=== PATIENT | male | born 1955 | race African-American/Black ===

== ENCOUNTER 2017-09-25 18:59 | Emergency (ER) | payer MEDICAID ==
[~2017-09-25] VITALS: Ht 162.6 cm; Wt 69.9 kg
[2017-09-25 18:58] VITALS: BP 129/68
--- NOTE | 2017-09-25 19:05 | Emergency Room Report ---
History of Present Illness General Chief Complaint: General Complaint Source: Patient (FAM SANTIAGO) Present Illness HPI Patient is a 62-year-old homeless male who presents with hypoglycemia. The patient states he takes glipizide and has been compliant with his diabetes medications but has not eaten at all today secondary to being homeless and unable to find anything to eat. Patient was given glucagon and oral glucose by EMS with improvement to blood sugar 130 now. Patient states he has bilateral leg pain that is chronic for him otherwise he has no complaints. (FAM SANTIAGO) Allergies: Coded Allergies: No Known Allergies (Unverified , 09/25/17) Patient History Past Medical History: DM Past Surgical History: none Pertinent Family History: none Social History: Reports: smoking, alcohol use (FAM SANTIAGO) Nursing Documentation-[facility] Hx Diabetes: Yes History Of Psychiatric Problem: Yes Hx Seizures: Yes (FAM SANTIAGO) Review of Systems Constitutional: Denies: no symptoms, see HPI, chills, sweats, fever, malaise, weakness, other Eye: Denies: no symptoms, see HPI, eye pain, blurred vision, tearing, double vision, nose pain, nose congestion, acuity changes, discharge, other ENT: Denies: no symptoms, see HPI, ear pain, ear discharge, nose pain, nose congestion, throat pain, throat swelling, mouth pain, hearing loss, nasal discharge, other Respiratory: Denies: no symptoms, see HPI, cough, orthopnea, shortness of breath, stridor, wheezing, WALKER, sputum, other Cardiovascular: Denies: no symptoms, see HPI, chest pain, edema, palpitations, syncope, PND, other Gastrointestinal: Denies: no symptoms, see HPI, abdominal pain, constipation, diarrhea, nausea, vomiting, melena, hematemesis, other Musculoskeletal: Reports: see HPI Skin: Denies: no symptoms, see HPI, rash, change in color, change in hair/nails , dryness, lesions, other Psychiatric: Denies: no symptoms, see HPI, prior hx, anxiety, depressed feelings, emotional problems, SI, HI, hallucinations, other Endocrine: Denies: no symptoms, see HPI, excessive sweating, flushing, intolerance to temperature, increased thirst, increased urine, unexplained weight loss, other Allergic: Denies: no symptoms, see HPI, urticaria, hay fever, other (FAM SANTIAGO) Physical Exam Vital Signs Date Time Temp Pulse Resp B/P (MAP) Pulse Ox O2 Delivery O2 Flow Rate FiO2 09/25/17 18:39 98.9 87 20 129/68 98 Room Air 99.0 Sp02 EP Interpretation: reviewed, normal General Appearance: no apparent distress, alert, GCS 15, non-toxic Head: normocephalic, atraumatic Eyes: bilateral eye normal inspection, bilateral eye PERRL ENT: hearing grossly normal, normal pharynx, no angioedema, normal voice Neck: full range of motion, supple/symm/no masses Respiratory: chest non-tender, lungs clear, normal breath sounds, speaking full sentences Cardiovascular #1: regular rate, rhythm, no edema Cardiovascular #2: 2+ carotid (R), 2+ carotid (L), 2+ radial (R), 2+ radial (L) , 2+ dorsalis pedis (R), 2+ dorsalis pedis (L) Gastrointestinal: normal bowel sounds, non tender, soft, non-distended, no guarding, no rebound Rectal: deferred Genitourinary: normal inspection, no CVA tenderness Musculoskeletal: back normal, gait/station normal, normal range of motion, non- tender, calf tenderness Neurologic: alert, oriented x3, responsive, motor strength/tone normal, sensory intact, speech normal Psychiatric: judgement/insight normal, memory normal, mood/affect normal, no suicidal/homicidal ideation Reflexes: 3+ bicep (R), 3+ bicep (L), 3+ tricep (R), 3+ tricep (L), 3+ knee (R) , 3+ knee (L) Skin: normal color, no rash, warm/dry, well hydrated, other - multiple old superficial scars to the abdomen Lymphatic: no adenopathy (FAM SANTIAGO) Procedures Central Line Central Line : Consent: Verbal Central Line Lumen: triple Maximal Sterile Barrier Tech: yes cap, yes mask, yes sterile gown, yes sterile gloves, yes large sterile sheet, yes hand hygiene, yes chlorhexidine prep Central Line Postion: femoral (R) Anesthesia: Lidocaine cc's of anesthesia: 4 Complications: none Central Line Post Position: sutured, good blood return Attempts: One Patient Tolerated: Well Complications: None (Juvenal Head M.D.) Medical Decision Making Diagnostic Impression: Primary Impression: Hypoglycemia ER Course Please see above note from Dr. Santiago. Continued hypoglycemia. No IV access. CVP started. D50W and D10W ordered. Final accucheck 91 prior to transfer. Discussed with Dr. Morillo who accepts the patient. Laboratory Tests Test 09/25/17 21:42 Sodium Level 137 MMOL/L (136-145) Potassium Level 4.0 MMOL/L (3.5-5.1) Chloride Level 104 MMOL/L (98-107) Carbon Dioxide Level 26 MMOL/L (21-32) Anion Gap 7 mmol/L (5-15) Blood Urea Nitrogen 27 mg/dL (7-18) H Creatinine 1.0 MG/DL (0.55-1.30) Estimate Glomerular Filtration Rate > 60 mL/min (>60) Glucose Level 38 MG/DL (74-106) *L Calcium Level 9.7 MG/DL (8.5-10.1) Total Bilirubin 0.5 MG/DL (0.2-1.0) Aspartate Amino Transferase (AST) 36 U/L (15-37) Alanine Aminotransferase (ALT) 26 U/L (12-78) Alkaline Phosphatase 147 U/L (46-116) H Total Protein 8.4 G/DL (6.4-8.2) H Albumin 3.9 G/DL (3.4-5.0) Globulin 4.5 g/dL Albumin/Globulin Ratio 0.9 (1.0-2.7) L Lipase 193 U/L (73-393) (Juvenal Head M.D.) Rhythm Strip Diag. Results EP Interpretation: yes Rhythm: NSR, no PVC's, no ectopy (Juvenal Head M.D.) Last Vital Signs Date Time Temp Pulse Resp B/P (MAP) Pulse Ox O2 Delivery O2 Flow Rate FiO2 09/25/17 18:58 99.0 20 129/68 98 Room Air 99.0 09/25/17 18:39 87 (FAM SANTIAGO) Last Vital Signs Date Time Temp Pulse Resp B/P (MAP) Pulse Ox O2 Delivery O2 Flow Rate FiO2 09/26/17 02:10 63 17 128/69 99 Room Air 09/25/17 18:58 99.0 99.0 Status: improved (Juvenal Head M.D.) Disposition: XFER SHT-TRM HOSP Condition: Serious FAM SANTIAGO Sep 25, 2017 19:05 Juvenal Head M.D. Sep 25, 2017 23:16
[2017-09-25 20:41] VITALS: BP 136/71
[2017-09-25] MEDS ORDERED: Dextrose 10% 1,000 ML IV SCH (21:30)
[2017-09-25 22:28] LABS: ALANINE AMINOTRANSFERASE 26 U/L (12-78); ALBUMIN 3.9 G/DL (3.4-5.0); ALBUMIN/GLOBULIN RATIO 0.9 (1.0-2.7); ALKALINE PHOSPHATASE 147 U/L (46-116); ANION GAP 7 mmol/L (5-15); ASPARTATE AMINO TRANSFERASE 36 U/L (15-37); BILIRUBIN,TOTAL 0.5 MG/DL (0.2-1.0); BLOOD UREA NITROGEN 27 mg/dL (7-18); CALCIUM 9.7 MG/DL (8.5-10.1); CARBON DIOXIDE 26 MMOL/L (21-32); CHLORIDE 104 MMOL/L (98-107); SODIUM 137 MMOL/L (136-145)
[2017-09-25 23:42] VITALS: BP 142/67
[2017-09-25 23:47] LABS: BASOPHILS % (AUTO) 0.6 % (0.0-2.0); EOSINOPHILS % (AUTO) 1.3 % (0.0-3.0); HEMATOCRIT 41.3 % (42.0-52.0); HEMOGLOBIN 13.7 G/DL (14.2-18.0); LYMPHOCYTES % (AUTO) 16.6 % (20.0-45.0); MEAN CORPUSCULAR VOLUME 85 FL (80-99); NEUTROPHILS % (AUTO) 76.6 % (45.0-75.0); PLATELET COUNT 187 K/UL (150-450); RED BLOOD COUNT 4.86 M/UL (4.70-6.10); RED CELL DISTRIBUTION WIDTH 11.4 % (11.6-14.8); WHITE BLOOD COUNT 9.3 K/UL (4.8-10.8)
[2017-09-26 01:38] VITALS: BP 117/57
[2017-09-26 02:10] VITALS: BP 128/69
== END 2017-09-26 02:10 | disposition short-term general hospital (02) ==
LOC: EDBD 18:59 → EMR 22:41
DX: E11.649 Type 2 diabetes mellitus with hypoglycemia without coma (principal); Z79.84 Long term (current) use of oral hypoglycemic drugs; Z86.69 Personal history of other diseases of the nervous system and sense organs; F17.200 Nicotine dependence, unspecified, uncomplicated
CPT/HCPCS: 36415; 80053; 82962; 83690; 85025; 96365; 96366; 96375; 99285